=== PATIENT | female | born 1995 | race Caucasian/White ===

== ENCOUNTER 2023-11-17 19:48 | Emergency (ER) | payer OTHER, SELFPAY ==
[2023-11-17 19:52] VITALS: BP 131/76; PULSE 89; RESP 18; TEMP 36.6; O2SAT 100; BMI 35.8
--- NOTE | 2023-11-17 20:34 | XR_ITS ---
The [address] [address] Patient Name: ELIZABETH ROMANO MRN: [id number] date: 1995 Sex: F Assigned Patient Location: ER Current Patient Location: ER Accession/Order Number: [id number] Exam Date: 11/17/2023 20:50 Report Date: 11/17/2023 21:15 At the request of: EMMA NUGENT Procedure: XR chest 2V EXAMINATION: CHEST RADIOGRAPH (2 VIEW AP/LATERAL) Exam Date/Time: 11/17/2023 8:50 PM EST Clinical History: CHEST PAIN Comparison: 02/13/2023 FINDINGS: Lines, tubes, and devices: None. Cardiomediastinal silhouette: Heart size within normal limits. Lungs and pleura: No focal consolidation, pleural effusion or pneumothorax. XR/XR chest 2V IMPRESSION: No acute cardiopulmonary process. Electronically authenticated by: CHARLIE KELLOGG Date: 11/17/2023 21:15
--- NOTE | 2023-11-17 20:34 | ECG_ITS ---
The [facility] Test Date: 2023-11-17 Pat Name: ELIZABETH ROMANO Department: Room: - Gender: Female Regulatory Affairs Analyst: : 1995 Requested By: Sonia Galarza Order Number: [id number] Reading MD: ALVA ALVAREZ Measurements Intervals [place] Rate: 90 P: 46 ND: 120 QRS: 80 QRSD: 80 T: 22 QT: 334 QTc: 382 Interpretive Statements 1100 Sinus rhythm 4068 Nonspecific Twave abnormality 9130 borderline ECG No previous ECG available for comparison Electronically Signed On 11-18-2023 5:34:09 EST by ALVA ALVAREZ
--- NOTE | 2023-11-17 20:42 | ED.GENADUL1 ---
Documented by User: NIYA Ralph 11/17/23 22:00 HPI - General Adult General Chief complaint: Chest Pain Stated complaint: Chest Pain Time Seen by Provider: 11/17/23 20:33 Source: patient Mode of arrival: walk-in Limitations: no limitations History of Present Illness HPI narrative: patient is a 28-year-old presents to the Emergency Room with concerns of chest pain and discomfort. Patient states symptoms started around end of October. Patient states she was diagnosed with coated during . Patient recently completed a steroid taper for fluid in her ears. With no change in her chest symptoms.patient notes persistent cough, semi-productive. No fever. Patient notes sharp pain up to a 7/10 with deep breath, present at rest. She denies any diarrhea or vomiting. She has had a prior remotely but denies any recent surgeries long travels or flights. Patient does not smoke or use control pills. Patient currently on her menstrual cycle denies chance of . Patient can localize pain to the right mid thoracic region worse with deep breath. Location: Reports chest Radiation: Reports back (right mid thoracic) Severity: moderate Quality: Reports stabbing and aching Associated symptoms: Reports cough Treatments prior to arrival: Reports NSAID Related Data Previous Rx's Medication Instructions Recorded naproxen 500 mg tablet 500 mg PO BID PRN pain #14 tabs 11/17/23 Allergies Allergy/AdvReac Type Severity Reaction Status Date / Time No Known Drug Allergies Allergy Verified 11/17/23 19:52 Review of Systems ROS Constitutional Denies: fever or chills Eyes Denies: change in vision Ears, nose, mouth, and throat Denies: throat pain Cardiovascular Denies: chest pain Respiratory Reports: shortness of breath, cough and pain on inspiration; Denies: wheezing Gastrointestinal Denies: abdominal pain, nausea or vomiting Genitourinary Denies: painful urination Musculoskeletal Denies: back pain or neck pain Neurological Denies: headache Psychiatric Denies: anxiety or mood swings Exam Narrative Exam Narrative: Nurses notes and vital signs reviewed and patient is not hypoxic. General: The patient appears well and in no apparent distress. Patient is resting comfortably on cart.patient sitting up speaking in full sentences Skin: Warm, dry, no pallor noted. no rash, no zoster-like lesions. Head: Normocephalic, atraumatic Neck: Supple, trachea mid-line, no tenderness, no lymphadenopathy Eye: Pupils are equal, round and reactive to light, EOMI Ears, Nose, Mouth, and Throat: TM are clear, normal light reflex, oral mucosa is moist, no posterior oropharynx erythema or hypertrophy, uvula is mid-line Cardiovascular: Regular Rate and Rhythm Respiratory: Patient is in no distress, no accessory muscle use, lungs are clear to auscultation, no wheezing, rales or rhonchi. Chest Wall: no tenderness, positive pleuritic chest pain noted. Back: non-tender, no CVA tenderness, pain is in the right parathoracic with deep breath. Musculoskeletal: normal ROM, no tenderness, no swelling GI: Normal bowel sounds, no tenderness to palpation, no masses appreciated. No rebound, guarding, or rigidity noted. Neurological: A&O x4 Psychiatric: Cooperative Constitutional Vital Signs, click to edit/add: Last Vital Signs Temp 98 F 11/17/23 19:52 Pulse 80 11/17/23 22:34 Resp 17 11/17/23 22:34 BP 131/76 11/17/23 19:52 Pulse Ox 99 11/17/23 22:34 O2 Del Method Room Air 11/17/23 19:52 Course Vital Signs Vital signs: Vital Signs Temperature 98 F 11/17/23 19:52 Pulse Rate 89 11/17/23 19:52 Respiratory Rate 18 11/17/23 19:52 Blood Pressure 131/76 11/17/23 19:52 Pulse Oximetry 100 11/17/23 19:52 Oxygen Delivery Method Room Air 11/17/23 19:52 Temperature 98 F 11/17/23 19:52 Pulse Rate 80 11/17/23 22:34 Respiratory Rate 17 11/17/23 22:34 Blood Pressure 131/76 11/17/23 19:52 Pulse Oximetry 99 11/17/23 22:34 Oxygen Delivery Method Room Air 11/17/23 19:52 Medical Decision Making MDM Narrative Medical decision making narrative: patient presents with pleurisy-like symptoms, PERC=0, patient appears low risk for PE, no Pain or swelling, we discussed pleuritic pain consistent with pleurisy IV Tooradol 30 mg given. D-dimer performed. Chest x-ray discussed, no evidence of infiltrate, patient's d-dimer was elevated, given clinical setting with recent covid, pleurisy. Lab Data Lab results reviewed: Yes I reviewed the patient's lab results Labs: Lab Results 11/17/23 11/17/23 Range/Units 20:40 20:56 WBC 7.3 (4.0-11.0) 10^3/uL RBC 4.21 (4.20-5.40) 10^6/uL Hgb 13.2 (12.0-16.0) g/dL Hct 38.2 (36.0-48.0) % MCV 90.7 (81.0-99.0) fL MCH 31.4 (26.7-34.0) pg MCHC 34.6 (29.9-35.2) g/dL RDW 12.2 (11.0-15.0) % Plt Count 237 (150-450) 10^3/uL MPV 9.3 L (9.5-13.5) fL Neut % (Auto) 59.9 (43.0-75.0) % Lymph % (Auto) 32.4 (20.5-60.0) % [place] % (Auto) 4.9 (1.7-12.0) % Eos % (Auto) 2.3 (0.9-7.0) % Baso % (Auto) 0.4 (0.2-2.0) % Neut # (Auto) 4.4 (1.4-6.5) 10^3/uL Lymph # (Auto) 2.4 (1.2-3.8) 10^3/uL [place] # (Auto) 0.4 (0.3-0.8) 10^3/uL Eos # (Auto) 0.2 (0.0-0.7) 10^3/uL Baso # (Auto) 0.0 (0.0-0.1) 10^3/uL Abs Immat Gran (auto) 0.01 (0.00-0.03) 10^3/uL Imm/Tot Granulo (auto) 0.1 (0.0-0.5) % D-Dimer 0.76 H* (<=0.59) mg/L FEU Sodium 137 (136-145) mmol/L Potassium 3.9 (3.5-5.1) mmol/L Chloride 103 (98-107) mmol/L Carbon Dioxide 29.4 (21.0-32.0) mmol/L Anion Gap 8.5 BUN 13.0 (7.0-18.0) mg/dL Creatinine 0.83 (0.55-1.02) mg/dL Est GFR ( Amer) >60 (>=60) Est GFR (Non-Af Amer) >60 (>=60) BUN/Creatinine Ratio 15.7 Glucose 93 (74-106) mg/dL Calcium 9.9 (8.5-10.1) mg/dL Total Bilirubin 0.2 (0.2-1.0) mg/dL AST 14 L (15-37) U/L ALT 17 (14-59) U/L Alkaline Phosphatase 57 (46-116) U/L Troponin I High Sens <4.0 L (4.0-51.3) pg/mL Total Protein 7.4 (6.4-8.2) g/dL Albumin 3.6 (3.4-5.0) g/dL Globulin 3.8 g/dL Albumin/Globulin Ratio 0.9 Lipase 32.0 (16.0-77.0) U/L Urine Color Lt. yellow (YELLOW) Urine Clarity Clear (CLEAR) Urine pH 7.0 (5.0-9.0) Ur Specific Alicia 1.020 (1.005-1.025) Urine Protein Negative (NEG/TRACE) mg/dL Urine Glucose (UA) Negative (NEGATIVE) mg/dL Urine Ketones Negative (NEGATIVE) mg/dL Urine Occult Blood Small A (NEGATIVE) Urine Nitrite Negative (NEGATIVE) Urine Bilirubin Negative (NEGATIVE) Urine Urobilinogen 0.2 (0.2-1.0) EU/dL Ur Leukocyte Esterase Negative (NEGATIVE) Urine RBC 0-2 (0-2) #/HPF Urine WBC None seen (NONE SEEN) #/HPF Ur Squamous Epith Cells Rare (NONE/RARE) #/LPF Urine Crystals Seen A (None Seen) #/HPF Amorphous Sediment Few Urine Bacteria None seen (NONE SEEN) #/HPF Urine Casts None seen (NONE SEEN) #/LPF Urine Mucus None seen (NONE SEEN) Ur Culture Indicated? No Urine HCG, Qual Negative (NEGATIVE) Imaging Data Chest x-ray: Radiologist's impression: MRN: [id number] date: 1995 Sex: F Assigned Patient Location: ER Current Patient Location: ER Accession/Order Number: [id number] Exam Date: 11/17/2023 20:50 Report Date: 11/17/2023 21:15 At the request of: EMMA DEL TORO Procedure: XR chest 2V EXAMINATION: CHEST RADIOGRAPH (2 VIEW AP/LATERAL) Exam Date/Time: 11/17/2023 8:50 PM EST Clinical History: CHEST PAIN Comparison: 02/13/2023 FINDINGS: Lines, tubes, and devices: None. Cardiomediastinal silhouette: Heart size within normal limits. Lungs and pleura: No focal consolidation, pleural effusion or pneumothorax. XR/XR chest 2V IMPRESSION: No acute cardiopulmonary process. Electronically authenticated by: CHARLIE KELLOGG Date: 11/17/2023 21:15 ECG Data Attestation: I personally reviewed and interpreted this ECG as follows: Interpretation: EKG interpretation: Emergency Department physician interpretation, normal sinus rhythm 90 bpm, no ectopy, no ST segment elevation, normal axis. normal qtc Discharge Plan Discharge Chief Complaint: Chest Pain Clinical Impression: Pleurisy, Chest pain Patient Disposition: Home, Self-Care Time of Disposition Decision: 23:17 Condition: Good Mode of Transportation: Private Vehicle Prescriptions / Home Meds: New naproxen 500 mg tablet 500 mg PO BID PRN (Reason: pain) Qty: 14 0RF Instructions: Pleurisy (ED) Stand Alone Forms: Portal Instructions Referrals: DIMITRI HORAN [Primary Care Provider] - As soon as possible Documented by User: Emma Del Toro MD 11/17/23 23:23 HPI - General Adult General Chief complaint: Chest Pain Stated complaint: Chest Pain Time Seen by Provider: 11/17/23 20:33 Related Data Previous Rx's Medication Instructions Recorded naproxen 500 mg tablet 500 mg PO BID PRN pain #14 tabs 11/17/23 Allergies Allergy/AdvReac Type Severity Reaction Status Date / Time No Known Drug Allergies Allergy Verified 11/17/23 19:52 Exam Constitutional Vital Signs, click to edit/add: Last Vital Signs Temp 98 F 11/17/23 19:52 Pulse 80 11/17/23 22:34 Resp 17 11/17/23 22:34 BP 131/76 11/17/23 19:52 Pulse Ox 99 11/17/23 22:34 O2 Del Method Room Air 11/17/23 19:52 Course Vital Signs Vital signs: Vital Signs Temperature 98 F 11/17/23 19:52 Pulse Rate 89 11/17/23 19:52 Respiratory Rate 18 11/17/23 19:52 Blood Pressure 131/76 11/17/23 19:52 Pulse Oximetry 100 11/17/23 19:52 Oxygen Delivery Method Room Air 11/17/23 19:52 Temperature 98 F 11/17/23 19:52 Pulse Rate 80 11/17/23 22:34 Respiratory Rate 17 11/17/23 22:34 Blood Pressure 131/76 11/17/23 19:52 Pulse Oximetry 99 11/17/23 22:34 Oxygen Delivery Method Room Air 11/17/23 19:52 Medical Decision Making [facility] Narrative Medical decision making narrative: patient presents with pleurisy-like symptoms, PERC=0, patient appears low risk for PE, no Pain or swelling, we discussed pleuritic pain consistent with pleurisy IV Tooradol 30 mg given. D-dimer performed. Chest x-ray discussed, no evidence of infiltrate, patient's d-dimer was elevated, given clinical setting with recent covid, pleurisy. CBC and chemistry without significant abnormalities. Troponin is very low excluding ACS in this low risk patient with symptoms greater than three hours. Low risk by heart score. Her d-dimer was positive. CT angiogram of the chest was performed rule out pulmonary embolus is without acute findings. Discussed suspected diagnosis of pleurisy with the patient. She responded well to steroids. We'll give her a shot of Kenalog for longer acting. Naproxen instead of ibuprofen at home. Follow up with PCP. Return precautions were discussed. All questions were answered. The patient was discharged home. Medical Records Medical records reviewed: Yes I reviewed the patient's medical records Lab Data Labs: Lab Results 11/17/23 11/17/23 Range/Units 20:40 20:56 WBC 7.3 (4.0-11.0) 10^3/uL RBC 4.21 (4.20-5.40) 10^6/uL Hgb 13.2 (12.0-16.0) g/dL Hct 38.2 (36.0-48.0) % MCV 90.7 (81.0-99.0) fL MCH 31.4 (26.7-34.0) pg MCHC 34.6 (29.9-35.2) g/dL RDW 12.2 (11.0-15.0) % Plt Count 237 (150-450) 10^3/uL MPV 9.3 L (9.5-13.5) fL Neut % (Auto) 59.9 (43.0-75.0) % Lymph % (Auto) 32.4 (20.5-60.0) % [place] % (Auto) 4.9 (1.7-12.0) % Eos % (Auto) 2.3 (0.9-7.0) % Baso % (Auto) 0.4 (0.2-2.0) % Neut # (Auto) 4.4 (1.4-6.5) 10^3/uL Lymph # (Auto) 2.4 (1.2-3.8) 10^3/uL [place] # (Auto) 0.4 (0.3-0.8) 10^3/uL Eos # (Auto) 0.2 (0.0-0.7) 10^3/uL Baso # (Auto) 0.0 (0.0-0.1) 10^3/uL Abs Immat Gran (auto) 0.01 (0.00-0.03) 10^3/uL Imm/Tot Granulo (auto) 0.1 (0.0-0.5) % D-Dimer 0.76 H* (<=0.59) mg/L FEU Sodium 137 (136-145) mmol/L Potassium 3.9 (3.5-5.1) mmol/L Chloride 103 (98-107) mmol/L Carbon Dioxide 29.4 (21.0-32.0) mmol/L Anion Gap 8.5 BUN 13.0 (7.0-18.0) mg/dL Creatinine 0.83 (0.55-1.02) mg/dL Est GFR ( Amer) >60 (>=60) Est GFR (Non-Af Amer) >60 (>=60) BUN/Creatinine Ratio 15.7 Glucose 93 (74-106) mg/dL Calcium 9.9 (8.5-10.1) mg/dL Total Bilirubin 0.2 (0.2-1.0) mg/dL AST 14 L (15-37) U/L ALT 17 (14-59) U/L Alkaline Phosphatase 57 (46-116) U/L Troponin I High Sens <4.0 L (4.0-51.3) pg/mL Total Protein 7.4 (6.4-8.2) g/dL Albumin 3.6 (3.4-5.0) g/dL Globulin 3.8 g/dL Albumin/Globulin Ratio 0.9 Lipase 32.0 (16.0-77.0) U/L Urine Color Lt. yellow (YELLOW) Urine Clarity Clear (CLEAR) Urine pH 7.0 (5.0-9.0) Ur Specific Alicia 1.020 (1.005-1.025) Urine Protein Negative (NEG/TRACE) mg/dL Urine Glucose (UA) Negative (NEGATIVE) mg/dL Urine Ketones Negative (NEGATIVE) mg/dL Urine Occult Blood Small A (NEGATIVE) Urine Nitrite Negative (NEGATIVE) Urine Bilirubin Negative (NEGATIVE) Urine Urobilinogen 0.2 (0.2-1.0) EU/dL Ur Leukocyte Esterase Negative (NEGATIVE) Urine RBC 0-2 (0-2) #/HPF Urine WBC None seen (NONE SEEN) #/HPF Ur Squamous Epith Cells Rare (NONE/RARE) #/LPF Urine Crystals Seen A (None Seen) #/HPF Amorphous Sediment Few Urine Bacteria None seen (NONE SEEN) #/HPF Urine Casts None seen (NONE SEEN) #/LPF Urine Mucus None seen (NONE SEEN) Ur Culture Indicated? No Urine HCG, Qual Negative (NEGATIVE) Discharge Plan Discharge Chief Complaint: Chest Pain Clinical Impression: Pleurisy, Chest pain Patient Disposition: Home, Self-Care Time of Disposition Decision: 23:17 Condition: Good Mode of Transportation: Private Vehicle Prescriptions / Home Meds: New naproxen 500 mg tablet 500 mg PO BID PRN (Reason: pain) Qty: 14 0RF Instructions: Pleurisy (ED) Stand Alone Forms: Portal Instructions Referrals: DIMITRI HORAN [Primary Care Provider] - As soon as possible
[2023-11-17 20:48] LABS: Bilirubin Urine NEGATIVE (NEGATIVE); Blood Urine SMALL (NEGATIVE); Clarity Urine CLEAR (CLEAR); Color Urine LT. YELLOW (YELLOW); Glucose Urine UA NEGATIVE (NEGATIVE); Ketones Urine NEGATIVE (NEGATIVE); Leukocyte Esterase Urine NEGATIVE (NEGATIVE); Nitrite Urine NEGATIVE (NEGATIVE); Protein Urine NEGATIVE (NEG/TRACE); Urobilinogen Urine 0.2 EU/dL (0.2-1.0)
[2023-11-17 20:49] LABS: Urine Microscopic Indicated YES
[2023-11-17 20:50] LABS: HCG Qualitative Urine* NEGATIVE (NEGATIVE)
[2023-11-17 20:53] LABS: Bacteria Urine NONE SEEN #/HPF (NONE SEEN); Crystals Seen? Seen #/HPF (None Seen); Mucus Urine NONE SEEN (NONE SEEN); RBC Urine 0-2 #/HPF (0-2); Squamous Epithelial Cell Urine RARE #/LPF (NONE/RARE); WBC Urine NONE SEEN #/HPF (NONE SEEN)
--- NOTE | 2023-11-17 20:53 | PC.NURSE ---
Pt reports pain under bilateral ribs with deep inspiration. Was diagnosed with COVID mid October, pt reports I haven't felt the same since . Increased fatigue also reported. Breath sounds are clear upon auscultation.
[2023-11-17 20:54] LABS: Amorphous Sediment Urine FEW; Cast Seen? NONE SEEN #/LPF (NONE SEEN); Urine Culture Indicated NO
[2023-11-17 21:04] LABS: Basophils Percent Auto 0.4 % (0.2-2.0); Eosinophils Absolute Auto 0.2 10^3/uL (0.0-0.7); Eosinophils Percent Auto 2.3 % (0.9-7.0); Hematocrit 38.2 % (36.0-48.0); Hemoglobin 13.2 g/dL (12.0-16.0); Immature Granulocytes Abs Auto 0.01 10^3/uL (0.00-0.03); Immature Granulocytes Pct Auto 0.1 % (0.0-0.5); Lymphocytes Absolute Auto 2.4 10^3/uL (1.2-3.8); Lymphocytes Percent Auto 32.4 % (20.5-60.0); Mean Corpuscular HGB Conc 34.6 g/dL (29.9-35.2); Mean Corpuscular Hemoglobin 31.4 pg (26.7-34.0); Mean Corpuscular Volume 90.7 fL (81.0-99.0); Mean Platelet Volume 9.3 fL (9.5-13.5); Monocytes Absolute Auto 0.4 10^3/uL (0.3-0.8); Monocytes Percent Auto 4.9 % (1.7-12.0); Neutrophils Absolute Auto 4.4 10^3/uL (1.4-6.5); Neutrophils Percent Auto 59.9 % (43.0-75.0); Platelet Count 237 10^3/uL (150-450); Red Blood Count 4.21 10^6/uL (4.20-5.40); Red Cell Distribution Width 12.2 % (11.0-15.0); White Blood Count 7.3 10^3/uL (4.0-11.0)
[2023-11-17] MEDS: KETOROLAC TROMETHAMINE 30 MG/ML VIAL IVP (21:07)
[2023-11-17 21:23] LABS: Alanine Aminotransferase 17 U/L (14-59); Albumin Globulin Ratio 0.9; Albumin Level 3.6 g/dL (3.4-5.0); Alkaline Phosphatase 57 U/L (46-116); Anion Gap 8.5; Aspartate Amino Transferase 14 U/L (15-37); BUN Creatinine Ratio 15.7; Bilirubin Total 0.2 mg/dL (0.2-1.0); Calcium 9.9 mg/dL (8.5-10.1); Carbon Dioxide 29.4 mmol/L (21.0-32.0); Chloride 103 mmol/L (98-107); Estimated GFR (African America >60 (>=60); Estimated GFR (Non-African Ame >60 (>=60); Globulin 3.8 g/dL; Glucose 93 mg/dL (74-106); Potassium 3.9 mmol/L (3.5-5.1); Sodium 137 mmol/L (136-145); Total Protein 7.4 g/dL (6.4-8.2)
[2023-11-17 21:25] LABS: Troponin I High Sensitivity <4.0 pg/mL (4.0-51.3)
[2023-11-17 21:39] LABS: D Dimer 0.76 mg/L FEU (<=0.59)
--- NOTE | 2023-11-17 21:39 | CT_ITS ---
The [address] [address] Patient Name: ELIZABETH ROMANO MRN: [id number] date: 1995 Sex: F Assigned Patient Location: ER Current Patient Location: Accession/Order Number: [id number] Exam Date: 11/17/2023 21:58 Report Date: 11/17/2023 22:38 At the request of: YVETTE VALVERDE Procedure: CT angio chest EXAMINATION: CHEST CT WITH CONTRAST (PULMONARY EMBOLISM PROTOCOL) Indication: r/o pe Technique: Spiral CT acquisition of the chest from the thoracic inlet to the upper abdomen following IV contrast. Maximum intensity projection (MIP)reconstructions were performed. All CT scans at this facility use dose modulation, iterative reconstruction, and/or weight based dosing when appropriate to reduce radiation dose to as low as reasonably achievable. Contrast: 75 mL of Omnipaque 350 IV Comparison: Multiple chest radiographs most recently 11/17/2023 RESULT: Limitations: None. Evaluation for thromboembolic disease: - Right heart chambers: No thromboembolic disease. - Main pulmonary arteries: No thromboembolic disease. - Lobar pulmonary arteries: No thromboembolic disease. - Segmental pulmonary arteries: No thromboembolic disease. - Subsegmental pulmonary arteries: No thromboembolic disease. Lines, tubes, and devices: None. Lung parenchyma and pleura: No consolidation. No suspicious pulmonary nodule. No pleural effusion. Central airways are patent. Thoracic inlet, heart, and mediastinum: No lymphadenopathy in the axillary, mediastinal, or hilar regions. The thoracic aorta and main pulmonary artery are normal in caliber. The cardiac chambers are normal in size. No coronary artery atherosclerotic calcifications are noted, although the study is not optimized for coronary assessment. No pericardial effusion or thickening. Bones and soft tissues: No destructive bone lesion. Chest wall is unremarkable. Upper abdomen: No abnormality in the imaged upper abdomen. . CT/CT angio chest IMPRESSION: No CT evidence of pulmonary embolism or acute findings in the thorax. Electronically authenticated by: CHARLIE KELLOGG Date: 11/17/2023 22:38
[2023-11-17] MEDS: 0.9 % SODIUM CHLORIDE 1,000 ML 999 ML IV (22:03)
[2023-11-17 22:34] VITALS: PULSE 80; RESP 17; O2SAT 99
[2023-11-17] MEDS: TRIAMCINOLONE ACETONIDE 40 MG/ML VIAL IM (23:30)
[2023-11-17 23:36] VITALS: BP 117/91; PULSE 81; RESP 15; O2SAT 98
== END 2023-11-17 23:39 | disposition home or self-care (01) ==
PROVIDERS: Personal Emergency Response Attendant; Emergency Provider Student in an Organized Health Care Education/Training Program; PCP Nurse Practitioner
DX: R07.9 Chest pain, unspecified (principal); R09.1 Pleurisy; Z86.16 Personal history of COVID-19
CPT/HCPCS: 36415; 71046; 71275; 80053; 81001; 83690; 84484; 84703; 85025; 85378; 93005; 96372; 96374; 99285; Q9967

== ENCOUNTER 2024-09-14 23:15 | Emergency (ER) | payer OTHER, SELFPAY ==
[2024-09-14 23:18] VITALS: BP 134/92; PULSE 88; TEMP 36.8; O2SAT 100; BMI 31.6
--- OUTSIDE RECORDS SUMMARY | 2024-09-14 23:20 | XMS_ITS | CCD ---
Author Organization [facility] Inform ion Partnership [facility] Care Team Providers Care Hydroelectric Operator Name Role Phone Sherice Carvalho Unavailable REQUEST, DR YADAV LISTED Primary Care Unavaila ble PAY ., DR DICKERSON Admitting Unavailable PAY ., DR DICKERSON Attending Unavailable PAY ., DR DICKERSON Consulting Unavailable ANGEL CARCAMO Consulting Unavailable MAKAYLA ., THIERRY Admitting Unavailable MAKAYLA ., THIERRY Attending [facility] Primary Care Unavailable SHRADDHA ., NIYA RODRÍGUEZ Consulting Unavailrambo BENAVIDES ., THIERRY Consulting Unavailable JOHN TIRADO Consulting Unavailable Geovanni 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-Dimitri SANTOS Primary Care [facility] DIMITRI GALARZA Attending Unavailable DIMITIR GALARZA Referring Unavailable DIMITRI GALARZA Primary Care Unavailable DIMITRI GALARZA Attending Unavailable DIMITRI GALARZA Referring Unavailable MICHAEL GALARZAERIE Jose Primary Care Unavailable DIMITRI GALARZA Attending Unavailable DIMITRI GALARZA Referring Unavailable DIMITRI GALARZA Primary Care Unavailable DIMITRI GALARZA Attending Unavailable DIMITRI GALARZA Referring Unavailable MICHAEL GALARZAERIE Jose Primary Care Unavailable HARITHA GALARZAE Jose Attending Unavailable HARITHA GALARZAE Jose Referring Unavailable MICHAEL GALARZAERIE Jose Primary Care Unavailable Medications Current Medications Medication Drug Class(es) Dates Sig (Normalized) Sig (Original) fluticasone propionate 0.05 mg/actuat metered dose nasal spray (1 source) Corticosteroid Start: 02-07-2022 take 2 spray(s) nasal route once daily Fluticasone Propionate 50 MCG/ACT 2 sprays Nasally Once a day for 14 day(s) Jan, Active omeprazole 20 mg delayed release oral tablet (2 sources) Proton Pump Inhibitor Start: 11-14-2023 take 1 tablet by mouth in the morning omeprazole (PriLOSEC OTC) 20 mg EC tablet Indications: GERD without esophagitis Take 1 tablet (20 mg total) by mouth in the morning. 90 tablet 1 11/14/2023 Active phentermine hydrochloride 37.5 mg oral tablet (3 sources) Sympathomimetic Amine Anorectic Start: 01-23-2024 End: 02-26-2024 take 31-31.9 tablets by mouth once daily before breakfast phentermine (ADIPEX-P) 37.5 mg tablet Indications: Class 1 obesity due to excess calories without serious comorbidity with body mass index (BMI) of 31.0 to 31.9 in adult Take 1 tablet (37.5 mg total) by mouth every morning before breakfast. 30 tablet 0 02/26/2024 Active predniSONE 20 mg oral tablet (1 source) Start: 02-07-2022 take 1 tablet by mouth every twelve hours predniSONE 20 MG 1 tablet Orally bid for 5 day(s) Jan, Active Problems Active Problems Problem Classification Problem Date Documented Da te Episodic/Chronic Nonspecific chest pain (1 source) Chest pain, unspecified; Translations: [CHEST PAIN UNSPECIFIED] Onset: 02-14-2023 Episodic Other circulatory disease (1 source) Upper respiratory tract finding; Translations: [Other specified symptoms and signs involving the circulatory and respiratory systems] 02-26-2024 Episodic Other nutritional; endocrine; and metabolic disorders (2 sources) Obesity caused by energy imbalance; Translations: [Other obesity due to excess calories] 01-23-2024 Chronic Other nutritional; endocrine; and metabolic disorders (1 source) Body mass index (BMI) 30.0-30.9, adult; Translations: [Body mass index (BMI) 30.0-30.9, adult] Onset: 03-25-2024 Chronic Other nutritional; endocrine; and metabolic disorders (1 source) Other obesity due to excess calories; Translations: [Other obesity due to excess calories] Onset: 02-26-2024 Chronic Other nutritional; endocrine; and metabolic disorders (1 source) Body mass index (BMI) 31.0-31.9, adult; Translations: [Body mass index (BMI) 31.0-31.9, adult] Onset: 02-26-2024 Chronic Other nutritional; endocrine; and metabolic disorders (1 source) Body mass index (BMI) 32.0-32.9, adult; Translations: [Body mass index (BMI) 32.0-32.9, adult] Onset: 01-23-2024 Chronic Other nutritional; endocrine; and metabolic disorders (1 source) Weight loss Onset: 02-26-2024 Episodic Other upper respiratory infections (2 sources) Acute sinusitis, unspecified; Translations: [Acute upper respiratory infection, unspecified] Onset: 02-07-2022 Resolved: 02-07-2022 Episodic Residual codes; unclassified (1 source) Other general symptoms and signs; Translations: [Other general symptoms and signs] Onset: 02-26-2024 Episodic Unclassified (2 sources) COUGH, UNSPECIFIED; Translations: [COUGH, UNSPECIFIED] Onset: 02-14-2023 Unclassified (1 source) CONTACT W/AND (SUSP) EXPOS COVID-19; Translations: [CONTACT W/AND (SUSP) EXPOS COVID-19] Onset: 02-14-2023 Unclassified (1 source) Weight Check Onset: 03-25-2024 Unclassified (1 source) Acute cough; Translations: [Acute cough] Onset: 11-18-2023 Past or Other Problems Problem Classification Problem Date Documented Da te Episodic/Chronic Cardiac dysrhythmias (1 source) Palpitations; Translations: [PALPITATIONS] Onset: 12-05-2022 Episodic Fever of unknown origin (1 source) Fever, unspecified Onset: 02-07-2022 Resolved: 02-07-2022 Episodic Mood disorders (2 sources) Mood disorders Onset: 01-23-2024 Resolved: 02-26-2024 01-23-2024 Other connective tissue disease (1 source) Pain in right lower leg; Translations: [Pain in right lower leg] Onset: 11-26-2023 Episodic Other connective tissue disease (1 source) Pain in lower limb Onset: 11-26-2023 Episodic Other lower respiratory disease (4 sources) Pleurodynia; Translations: [PLEURODYNIA] Onset: 12-04-2022 Episodic Other lower respiratory disease (1 source) Cough Onset: 11-18-2023 Episodic Pleurisy; pneumothorax; pulmonary collapse (2 sources) Pleurisy; Translations: [PLEURISY] Onset: 02-14-2023 Episodic Residual codes; unclassified (2 sources) Family history of diabetes mellitus in first degree relative; Translations: [Family history of diabetes mellitus] Onset: 06-20-2017 06-20-2017 Episodic Unclassified (1 source) COUGH, UNSPECIFIED; Translations: [COUGH, UNSPECIFIED] Onset: 02-13-2023 Unclassified (2 sources) Onset: 01-23-2024 Resolved: 02-26-2024 01-23-2024 Results Test Name Value Interpretation Reference Range Facility POCT Influenza A/Influenza B /SARS-COV-2 VeritorOrdered By: Em Hanson on 02-26-2024 External Poct Influenza A Antigen Negative [facility] External Poct Influenza B Antigen Negative [facility] SARS-CoV-2 (COVID-19) Ag IA.rapid Ql (Resp) Negative [facility] In office Testingon 03-08-20 23 In office Testing [id number] 7#[id number]:127 Normal [facility] Covid-19 PCR (CVDTB)on 01-30 SARS-CoV-2 (COVID-19) RNA CARSON+probe Ql (Unsp spec) Not detected Normal NOT DETECTED [facility] Comment on above: Result Comment: When diagnostic testing is negative, the possibility of a false negative should be considered in the context of a patient's recent exposures and the presence of clinical signs and symptoms consistent with SARS-CoV-2. This test is not yet approved or cleared by the [place] FDA. When there are no FDA-approved or cleared tests available, and other criteria are met, FDA can make tests available under an emergency access mechanism called an Emergency Use Authorization (EUA). The EUA for this test is supported by the [place] of Health and Human Service's declaration that circumstances exist to justify the emergency use of in vitro diagnostics for the detection and/or diagnosis of the virus that causes COVID-19. This EUA will remain in effect for the duration of the COVID-19 declaration justifying emergency of IVDs, unless it is terminated or revoked by the FDA (after which the test may no longer be used). Performed By: #### C [facility] #### [facility] [address] [place] [address] Dr. Hue Hernandez INFLUENZA A AND B [facility] 02-13 INFLUBANNER SEE BELOW Normal [facility] Comment on above: Result Comment: Nega tive for Flu A protein angiten. Infection due to Flu A cannot be ruled out. Flu A angiten in the sample may be below the detection limit of the test. Performed By: #### I NFLUAB #### [facility] [address] [place] [address] Dr. [facility] SEE BELOW Normal [facility] Comment on above: Result Comment: Nega tive for Flu B protein antigen. Infection due to Flu B cannot be ruled out. Flu B antigen in the sample may be below the detection limit of the test. Performed By: #### I NFLUAB #### [facility] [address] [place] [address] Dr. Hue Hernandez INFLUENZA A AG Negative Normal NEGATIVE SEE COMMENT [facility] Comment on above: Performed By: #### I NFLUAB #### [facility] [address] [place] [address] Dr. Hue Hernandez INFLUENZA B AG Negative Normal NEGATIVE SEE COMMENT [facility] Comment on above: Performed By: #### I NFLUAB #### [facility] [address] [place] [address] Dr. Hue Hernandez XR CHEST 1 Von 02-13-2023 XR CHEST 1 V EXAM: XR CHEST 1 V HISTORY: COUGH COMPARISON: None. TECHNIQUE: Chest X-ray AP, 1 view FINDINGS: Support devices: None. Lungs/pleura: No consolidation, effusion, or pneumothorax. Heart and mediastinum: Normal contours. Bones: No acute abnormality identified. IMPRESSION: No radiographic evidence of acute cardiopulmonary process. Electronically authenticated by: JOHN TIRADO Date: 2023-02-13 13:35 Normal [facility] XR CHEST 2 Von 12-04-2022 XR CHEST 2 V EXAM: XR CHEST 2 V HISTORY: SHORTNESS OF BREATH COMPARISON: Chest x-ray 02/20/2022 TECHNIQUE: 2 views chest x-ray frontal and lateral FINDINGS: Mild bilateral perihilar airway wall thickening. No lobar lung consolidation, large pleural effusions, pneumothorax, or acute bony abnormality. Cardiac size is unremarkable. IMPRESSION: Mild bilateral perihilar airway wall thickening could reflect sequela of reactive airway inflammation or bronchiolitis in the proper clinical setting. Correlate clinically. Otherwise, no radiographic lung consolidation or large pleural effusions. Electronically authenticated by: ANGEL CARCAMO Date: 2022-12-04 01:12 Normal [facility] Quick Fluon 02-07-2022 FLUAV Ab CF (S) [Titer] Negative [employer] Other FLUBV Ab CF (S) [Titer] Negative [employer] Other Vital Signs Date Time Vital Sign Value Performing Clinician Facility 02-26-2024 11:29-0400 Body height 165.1 cm Dimitri Galarza APRN-TOM [facility] 02-26-2024 11:29-0400 Body mass index (BMI) [Ratio] 31.43 kg/m2 Dimitri Galarza APRN-BLUEPRINTER [facility] 02-26-2024 11:29-0400 Body temperature 97.81 [degF] Dimitri Galarza APRN-BLUEPRINTER [facility] 02-26-2024 11:29-0400 Body weight 85.68 kg Dimitri Galarza APRN-BLUEPRINTER [facility] 02-26-2024 11:29-0400 Diastolic blood pressure 62 mm[Hg] Dimitri Galarza APRN-BLUEPRINTER [facility] 02-26-2024 11:29-0400 Heart rate 94 /min Dimitri Galarza APRN-BLUEPRINTER [facility] 02-26-2024 11:29-0400 Respiratory rate 18 /min Dimitri Galarza APRN-BLUEPRINTER [facility] 02-26-2024 11:29-0400 SaO2% (BldA) [Mass fraction] 98 % Dimitri Galarza APRN-BLUEPRINTER [facility] 02-26-2024 11:29-0400 Systolic blood pressure 108 mm[Hg] Dimitri Galarza APRN-BLUEPRINTER Work Phone: [facility] [employer] 01-23-2024 15:28-0500 Body height 165.1 cm Dimitri Galarza APRN-BLUEPRINTER Work Phone: [facility] [employer] 01-23-2024 15:28-0500 Body mass index (BMI) [Ratio] 32.2 kg/m2 Dimitri Galarza APRN-BLUEPRINTER [facility] 01-23-2024 15:28-0500 Body temperature 98.49 [degF] Dimitri Galarza APRN-BLUEPRINTER [facility] 01-23-2024 15:28-0500 Body weight 87.77 kg Dimitri Galarza APRN-BLUEPRINTER Work Phone: [facility] [employer] 01-23-2024 15:28-0500 Diastolic blood pressure 64 mm[Hg] Dimitri Galarza APRN-BLUEPRINTER Work Phone: [facility] [employer] 01-23-2024 15:28-0500 Heart rate 108 /min Dimitri Galarza APRN-BLUEPRINTER [facility] 01-23-2024 15:28-0500 SaO2% (BldA) [Mass fraction] 99 % Dimitri Galarza APRN-BLUEPRINTER [facility] 01-23-2024 15:28-0500 Systolic blood pressure 114 mm[Hg] Dimitri Galarza APRN-BLUEPRINTER Work Phone[facility] 02-07-2022 14:00-0500 Body height 165.1 cm Sherice Carvalho Other [employer] Other 02-07-2022 14:00-0500 Body mass index (BMI) [Ratio] 38.27 kg/m2 Sherice Carvalho Other [employer] Other 02-07-2022 14:00-0500 Body temperature 99.6 [degF] Sherice Carvalho Other [employer] Other 02-07-2022 14:00-0500 Body weight 104.33 kg Sherice Carvalho Other [employer] Other 02-07-2022 14:00-0500 Respiratory rate 18 /min Sherice Carvalho Other [employer] Other 02-07-2022 14:00-0500 SaO2% (BldA) [Mass fraction] 98 % Sherice Carvalho Other [employer] Other Encounters Encounter Date Encounter Type Care Provider Facility Start: 03-25-2024 End: 03-25-[address] [facility] Start: 02-26-2024 End: 02-26-[address] [facility] Start: 02-26-2024 End: 02-26-2024 Office outpatient visit 15 minutes Dimitri Galarza 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-BLUEPRINTER Work Phone: [facility] Comment on above: Class 1 obesity due to excess calories without serious comorbidity with body mass index (BMI) of 31.0 to 31.9 in adult (Primary Dx); Upper respiratory symptom Start: 01-23-2024 End: 01-23-[address] [facility] Start: 01-23-2024 End: 01-23-2024 Office outpatient visit 15 minutes Dimitri Galarza 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-BLUEPRINTER Work Phone: [facility] Comment on above: Class 1 obesity due to excess calories without serious comorbidity with body mass index (BMI) of 32.0 to 32.9 in adult (Primary Dx) Start: 11-26-2023 End: 11-26-[address] [facility] Start: 11-18-2023 End: 11-18-[address] [facility] Start: 02-13-2023 End: 02-13-2023 ambulatory THIERRY BENAVIDES . Facility: Start: 12-04-2022 End: 12-04-[address] NONE LISTED REQUEST Facility: Start: 02-07-2022 End: 02-07-2022 ambulatory Sherice Carvalho Other [employer] Other Start: 02-07-2022 Office outpatient vi sit 15 minutes Sherice Carvalho [facility] Procedures Date Procedure Procedure Detail Performing Clinician Start: 02-26-2024 POCT INFLUENZA A/INF LUENZA B/SARS-COV-2 VERITOR Dimitri Galarza [email or web address] Work Phone: Start: 02-26-2024 Adult depression scr eening assessment Dimitri Galarza 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-BLUEPRINTER Work Phone: Start: 01-23-2024 Adult depression scr eening assessment Dimitri Galarza 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-BLUEPRINTER Work Phone: Start: 11-13-2022 Microscopic observat ion [Identifier] in Cervix by Cyto stain Dimirti Galarza [email or web address] Work Phone: Plan of Treatment Date Care Activity Detail Author Start: 11-13-2025 Screening for malign ant neoplasm of cervix Pap Smear [facility] Start: 02-25-2025 Adult BMI Screening Adult BMI Screen ing [facility] Start: 02-25-2025 Depression Screening Depression Scre ening [facility] Start: 02-25-2025 Tobacco Screening Tobacco Screening [facility] Start: 01-23-2025 Adult BMI Follow Up Plan Adult BMI Follow Up Plan [facility] Start: 01-23-2025 Adult BMI Screening Adult BMI Screen ing [facility] Start: 01-23-2025 Depression Screening Depression Scre ening [facility] Start: 01-23-2025 Tobacco Screening Tobacco Screening [facility] Start: 11-26-2024 Adult BMI Follow Up Plan Adult BMI Follow Up Plan [facility] Start: 03-23-2024 End: 03-23-2024 Patient encounter procedure 03/23/2024 1:20 PM EDT Office Visit [facility] [address] [place] [address] Dimitri Galarza, 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-BLUEPRINTER [address] [place] [address] [facility] Start: 02-24-2024 End: 02-24-2024 Patient encounter procedure 02/24/2024 11:20 AM EDT Office Visit [facility] [address] [place] [address] Dimitri Galarza, 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-BLUEPRINTER [address] [place] [address] [facility] Start: 08-02-2023 Influenza vaccination Influenza Vacc ine [facility] Start: 2014 DTaP,Tdap and Td Vaccines (1 - Tdap) DTaP,Tdap and Td Vaccines (1 - Tdap) [facility] Immunizations Immunization Date Immunization Notes Care Provider Fa cility NEGATED: Highlighted row has not occurred!01-08-2018 tetanus toxoid, reduced diphtheria toxoid, and acellular pertussis vaccine, adsorbed Dimitri Galarza 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-BLUEPRINTER Work Phone: [facility] Payers Date Payer Category Payer Private Health Insurance [facility] [id number] 2022-Present [phone] [facility] [address] [place] [id number] 1995 Unknown [id number] 1995 Unknown [id number] 1995 Unknown [id number] 1995 Unknown [id number] 1995 Unknown [id number] 1995 Unknown [id number] 1995 Unknown [id number] 1959 Unknown [id number] 1959 Unknown [id number] Social History Date Type Detail Facility Start: 01-11-2021 End: 01-23-2024 Sex Assigned At [facility] Start: 10-17-2022 Tobacco smoking stat [facility] Ex-smoker [facility] End: 06-20-2015 History of tobacco use Current smoker [facility] End: 06-20-2015 History of tobacco use Cigarette Smoker [facility] Start: 10-17-2022 Tobacco use and exposure Smokeless tobacco non-user [facility] Start: 01-23-2024 End: 02-26-2024 Alcohol intake Current drinker of alcohol (finding) [facility] Start: 01-11-2021 End: 01-23-2024 History of Social function [facility] Adolescent depressio n screening assessment 0 [facility] The thought of harmi ng myself has occurred to me Never [facility] Start: 10-17-2022 Alcohol Comment occassionally [facility] Start: 1995 Sex Assigned At Not on file P [facility] History of Present illness Narrative 02-26-2024 Dimitri Galarza, KJ-BLUEPRINTER - 02/26/2024 11:40 AM EDT Note Date & Type Note Facility 02-26-2024 History of Present illness Narrative Images from the original note were not included. [address] [place] [address] SUBJECTIVE: Patient ID: Elizabeth Romano is a 28 y.o. female. Chief Complaint Patient presents with Weight Loss Sinus infection 1 week Presents for weight loss follow up. Relates she has now lost 50 pounds total over the past year. She does not have an exercise routine, but enjoys to walk outdoors. Additional concern today is congestion, sneezing. States her symptoms are 50% improved since onset. She is not sure if she has a sinus infection. Sinus Problem This is a new problem. The current episode started 1 to 4 weeks ago. The problem has been gradually improving since onset. Her pain is at a severity of 3/10. The pain is mild. Associated symptoms include congestion and sneezing. Pertinent negatives include no chills, ear pain or shortness of breath. The following portions of the patient's history were reviewed and updated as appropriate: allergies, current medications, past family history, past medical history, past social history, past surgical history and problem list. Past Surgical History: Procedure Laterality Date N/A 05/20/2020 Performed by Gracia Jauregui MD at [facility] OR History reviewed. No pertinent past medical history. There is no immunization history for the selected administration types on file for this patient. REVIEW OF SYSTEMS: Review of Systems Constitutional: Negative for chills and fever. HENT: Positive for congestion and sneezing. Negative for ear pain. Eyes: Negative for visual disturbance. Respiratory: Negative for chest tightness and shortness of breath. Cardiovascular: Negative for chest pain and palpitations. Gastrointestinal: Negative. Endocrine: Negative. Genitourinary: Negative for menstrual problem and pelvic pain. Musculoskeletal: Negative. Skin: Negative. Allergic/Immunologic: Negative. Neurological: Negative for syncope and facial asymmetry. Hematological: Does not bruise/bleed easily. Psychiatric/Behavioral: Negative. PHYSICAL EXAMINATION: Vitals: 02/26/24 1129 BP: 108/62 BP Site: Left Arm BP Postition: Sitting Pulse: 94 Resp: 18 Temp: 36.6 C (97.8 F) TempSrc: Oral SpO2: 98% Weight: 85.7 kg (188 lb 14.4 oz) Height: 165.1 cm (5' 5 ) Patient noted to have elevated BMI and the following intervention(s) were applied: encouragement to exercise. Physical Exam Vitals and nursing note reviewed. Constitutional: General: She is not in acute distress. Appearance: She is well-developed. She is not diaphoretic. HENT: Head: Normocephalic and atraumatic. Right Ear: Tympanic membrane and external ear normal. Left Ear: Tympanic membrane and external ear normal. Nose: Nose normal. Mouth/Throat: Mouth: Mucous membranes are moist. Pharynx: No oropharyngeal exudate. Eyes: General: Right eye: No discharge. Left eye: No discharge. Conjunctiva/sclera: Conjunctivae normal. Pupils: Pupils are equal, round, and reactive to light. Neck: Thyroid: No thyromegaly. Vascular: No JVD. Cardiovascular: Rate and Rhythm: Normal rate and regular rhythm. Heart sounds: Normal heart sounds. No murmur heard. No friction rub. No gallop. Pulmonary: Effort: Pulmonary effort is normal. Breath sounds: Normal breath sounds. Abdominal: General: Bowel sounds are normal. There is no distension. Palpations: Abdomen is soft. There is no mass. Tenderness: There is no abdominal tenderness. Musculoskeletal: General: Normal range of motion. Cervical back: Normal range of motion and neck supple. Lymphadenopathy: Cervical: No cervical adenopathy. Skin: General: Skin is warm and dry. Capillary Refill: Capillary refill takes less than 2 seconds. Neurological: Mental Status: She is alert and oriented to person, place, and time. Deep Tendon Reflexes: Reflexes are normal and symmetric. Psychiatric: Mood and Affect: Mood normal. Behavior: Behavior normal. Thought Content: Thought content normal. Judgment: Judgment normal. ASSESSMENT/PLAN: Elizabeth was seen today for weight loss. Diagnoses and all orders for this visit: Flu-like symptoms Class 1 obesity due to excess calories without serious comorbidity with body mass index (BMI) of 31.0 to 31.9 in adult - phentermine (ADIPEX-P) 37.5 mg tablet; Take 1 tablet (37.5 mg total) by mouth every morning before breakfast. Upper respiratory symptom - POCT Influenza A/Influenza B/SARS-COV-2 Veritor Assessment findings negative for sinuitis. POCT influenza and COVID testing in office is negative. States symptoms are now 50% better Cool mist humidification for congestion, warm salt water gargles as needed for sore throat. Motrin or Tylenol as needed per still pump operator guidelines for fever or pain. Body mass index is 31.43 kg/m . Patient noted to have elevated BMI and the following intervention(s) were applied: Discussed current weight today. Consider healthy food choices, portion control. Avoid sugary beverages and high concentrated sweets. Routine exercise regimen encouraged. The OARRS/MAPPS database was reviewed today and found to be appropriate. No indication of medication diversion, or non compliance. Reorder phentermine 37.5 mg oral daily ALL QUESTIONS ANSWERED Total time spent was 25 minutes: Preparing to see the patient (e.g., review of tests) Obtaining and/or reviewing separately obtained history Performing a medically appropriate examination and/or evaluation Counseling and educating the patient/family/caregiver Ordering medications, tests, or procedures Follow-up: One month RADU Chiang 02/26/24 1407 documented in this encounter [facility] History of Present illness Narrative 01-23-2024 RADU Chiang - 01/23/2024 3:20 PM EST Note Date & Type Note Facility 01-23-2024 History of Present illness Narrative Images from the original note were not included. [address] [facility] [address] SUBJECTIVE: Patient ID: Elizabeth Romano is a 28 y.o. female. Chief Complaint Patient presents with Weight Check Presents for discussion of weight loss. Has lost approximately 45 over the past 8 months. She wishes to start phentermine. The following portions of the patient's history were reviewed and updated as appropriate: allergies, current medications, past family history, past medical history, past social history, past surgical history and problem list. Past Surgical History: Procedure Laterality Date N/A 05/20/2020 Performed by Gracia Jauregui MD at [facility] OR History reviewed. No pertinent past medical history. There is no immunization history for the selected administration types on file for this patient. REVIEW OF SYSTEMS: Review of Systems Constitutional: Negative for chills and fever. HENT: Negative. Eyes: Negative for visual disturbance. Respiratory: Negative for chest tightness and shortness of breath. Cardiovascular: Negative for chest pain and palpitations. Gastrointestinal: Negative. Endocrine: Negative. Genitourinary: Negative for menstrual problem and pelvic pain. Musculoskeletal: Negative. Skin: Negative. Allergic/Immunologic: Negative. Neurological: Negative for syncope and facial asymmetry. Hematological: Does not bruise/bleed easily. Psychiatric/Behavioral: Negative. PHYSICAL EXAMINATION: Vitals: 01/23/24 1528 BP: 114/64 BP Site: Left Arm BP Postition: Sitting Pulse: 108 Temp: 36.9 C (98.5 F) TempSrc: Oral SpO2: 99% Weight: 87.8 kg (193 lb 8 oz) Height: 165.1 cm (5' 5 ) Patient noted to have elevated BMI and the following intervention(s) were applied: encouragement to exercise. Physical Exam Vitals and nursing note reviewed. Constitutional: General: She is not in acute distress. Appearance: She is well-developed. She is not diaphoretic. HENT: Head: Normocephalic and atraumatic. Right Ear: Tympanic membrane and external ear normal. Left Ear: Tympanic membrane and external ear normal. Nose: Nose normal. Mouth/Throat: Mouth: Mucous membranes are moist. Pharynx: No oropharyngeal exudate. Eyes: General: Right eye: No discharge. Left eye: No discharge. Conjunctiva/sclera: Conjunctivae normal. Pupils: Pupils are equal, round, and reactive to light. Neck: Thyroid: No thyromegaly. Vascular: No JVD. Cardiovascular: Rate and Rhythm: Normal rate and regular rhythm. Heart sounds: Normal heart sounds. No murmur heard. No friction rub. No gallop. Pulmonary: Effort: Pulmonary effort is normal. Breath sounds: Normal breath sounds. Abdominal: General: Bowel sounds are normal. There is no distension. Palpations: Abdomen is soft. There is no mass. Tenderness: There is no abdominal tenderness. Musculoskeletal: General: Normal range of motion. Cervical back: Normal range of motion and neck supple. Lymphadenopathy: Cervical: No cervical adenopathy. Skin: General: Skin is warm and dry. Capillary Refill: Capillary refill takes less than 2 seconds. Neurological: Mental Status: She is alert and oriented to person, place, and time. Deep Tendon Reflexes: Reflexes are normal and symmetric. Psychiatric: Mood and Affect: Mood normal. Behavior: Behavior normal. Thought Content: Thought content normal. Judgment: Judgment normal. ASSESSMENT/PLAN: Elizabeth was seen today for weight check. Diagnoses and all orders for this visit: Class 1 obesity due to excess calories without serious comorbidity with body mass index (BMI) of 32.0 to 32.9 in adult - phentermine (ADIPEX-P) 37.5 mg tablet; Take 1 tablet (37.5 mg total) by mouth every morning before breakfast. Body mass index is 32.2 kg/m . Patient noted to have elevated BMI and the following intervention(s) were applied: Discussed current weight today. Consider healthy food choices, portion control. Avoid sugary beverages and high concentrated sweets. Routine exercise regimen encouraged. The OARRS/MAPPS database was reviewed today and found to be appropriate. No indication of medication diversion, or non compliance. ALL QUESTIONS ANSWERED Total time spent was 25 minutes: Preparing to see the patient (e.g., review of tests) Obtaining and/or reviewing separately obtained history Performing a medically appropriate examination and/or evaluation Counseling and educating the patient/family/caregiver Ordering medications, tests, or procedures Follow-up: One month [facility]U Chiang 01/23/24 1716 documented in this encounter [facility] Evaluation note 02-07-2022 Note Date & Type Note Facility 02-07-2022 Evaluation note Encounter Date Diagnosis Assessment Notes Jan, Fever, unspecified fever cause (ICD-10 - R50.9) Jan, Acute sinusitis, recurrence not specified, unspecified location (ICD-10 - J01.90) Drink plenty fluids, get plenty of rest. Take the prednisone as prescribed until gone. Use the Flonase inhaler as prescribed until your symptoms improve. Take Tylenol Motrin for aches pains or fevers. Off work today and tomorrow. Follow-up with your family physician if no improvement in 2 to 3 days. [employer] Other Evaluation note Note Date & Type Note Facility Evaluation note Diagnosis Class 1 obesity due to excess calories without serious comorbidity with body mass index (BMI) of 32.0 to 32.9 in adult- Primary [facility] Note Date & Type Note Facility Evaluation note Diagnosis Class 1 obesity due to excess calories without serious comorbidity with body mass index (BMI) of 31.0 to 31.9 in adult- Primary Upper respiratory symptom documented [facility] History general Narrative - Reported Note Date & Type Note Facility History general Narrative - Reported Type Surgical History 2020 Hospitalization History see above [employer] Other Instructions Attachments Note Date & Type Note Facility Instructions The following attachments cannot be sent through Care Everywhere.Diet and health (Korean)Body Mass Index, Adult (Korean)documented in this encounter Physician Practice [facility] Instructions Attachments Note Date & Type Note Facility Instructions The following attachments cannot be sent through Care Everywhere.Diet and health (Korean)documented in this encounter [employer] Summary Purpose Family History No Family History Records FoundNo Family History Records FoundNo Family History Records Found Advance Directives No Advanced Directives Records FoundLatest Code Status on File Code Status Date Activated Date Inactivated Comments Full Code 05/20/2020 8:20 AM 05/23/2020 11:59 AM Code Status History Code Status Date Activated Date Inactivated Comments Full Code 07/01/2019 6:06 AM 07/04/2019 4:30 PM Full Code 06/14/2019 10:30 PM 06/15/2019 12:41 AM Full Code 05/26/2019 7:03 PM 05/26/2019 9:30 PM Full Code 01/08/2018 5:51 AM 01/10/2018 4:50 PM Reason for Referral Specialty Diagnoses / Procedures Referred By Saba stark Referred To Contact Diagnoses Class 1 obesity due to excess calories without serious comorbidity with body mass index (BMI) of 32.0 to 32.9 in adult Dimitri Galarza, 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-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 [address] [place] [address] Referral ID Status Reason Start Date Expiration Date Visits Re quested Visits Authorized [id number] Closed 1 1 Additional Source Comments REASON FOR VISIT (unrecogniz ed section and content) Reason Comments Weight Check Reason Comments Weight Loss Sinus infection 1 we ek INFORMATION SOURCE (unrecogn ized section and content) DATE CREATED AUTHOR 03/09/2023 [facility] DATE CREATED AUTHOR AUTHOR'S ORGANIZ ATION 03/27/2023 [facility] DATE CREATED AUTHOR AUTHOR'S ORGANIZ ATION 03/27/2024 [facility] Care Teams (unrecognized sec tion and content) Hydroelectric Operator Relationship Specialty Start Date End Date Dimitri Galarza [facility] [address] [place] [address] PCP - General Family Medicine 09/12/22 Hydroelectric Operator Relationship Specialty Start Date End Date Dimitri Galarza [facility] [address] [place] [address] PCP - General Family Medicine 09/12/22 FOR RECORDS PERTAINING TO PATIENTS WHO ARE OR HAVE BEEN ENROLLED IN A CHEMICAL DEPENDENCY/SUBSTANCEABUSE PROGRAM, SOME INFORMATION MAY BE OMITTED. This clinical summary was aggregated from multiple sources. Caution should be exercised in using it in the provision of clinical care. This summary normalizes information from multiple sources, and as a consequence, information in this document may materially change the coding, format and clinical context of patient data. In addition, data may be omitted in some cases. CLINICAL DECISIONS SHOULD BE BASED ON THE PRIMARY CLINICAL RECORDS. [employer] provides no warranty or guarantee of the accuracy or completeness of information in this document.
--- NOTE | 2024-09-14 23:29 | ED_ITS ---
HPI HPI - General Adult General Chief complaint: Headache Stated complaint: neck pain Time Seen by Provider: 09/14/24 23:21 Source: patient Mode of arrival: walk-in Limitations: no limitations History of Present Illness HPI narrative: complains of neck pain and headache. States she fell onto her neck about one month ago. Has had some pain of her neck since the fall. also mild headache. patient states she recently found out she is . [id number] feels her neck pain and headache have increased for 2 weeks. Demonstrates turning to the right or extending her neck increases her pain. No radicular symptoms of her upper extremities. Headache without nausea , dizziness or photophobia Related Data Allergies Allergy/AdvReac Type Severity Reaction Status Date / Time No Known Drug Allergies Allergy Verified 09/14/24 23:21 Opioid HPI Opioid Management Most Recent Opioid Data: 2 Last Pain Scale 7 09/14/24 23:22 09/14/24 Review of Systems 2 ROS0 Status of ROS 10 or more systems reviewed and unremark able except as noted in history and below Exam Constitutional Vital Signs, click to edit/add: Last Vital Signs Temp 98.2 F 09/14/24 23:18 Pulse 88 09/14/24 23:18 Resp 18 09/14/24 23:18 BP 134/92 H 09/14/24 23:18 Pulse Ox 100 09/14/24 23:18 O2 Del Method Room Air 09/14/24 23:18 Common normals: no apparent distress, average body habitus, oriented x3, no limitations, healthy appearing, alert and well nourished [facility] Common normals: normocephalic and head/scalp atraumatic Head images: 2 1. tender and reproduces symptoms 2. tender and reproduces symptoms Eye Common normals: PERRL, EOMs intact bilaterally and conjunctivae normal (no photophobia) Neck & C-Spine Common normals: full ROM Respiratory Common normals: normal respiratory effort, no retractions and no use of accessory muscles Cardio Common normals: regular rate, regular rhythm, S1 normal heart sound and S2 normal heart sound GI Common normals: Normal to inspection, nondistended, normoactive bowel sounds present, soft to palpation and non-tender Extremity Common normals: normal to inspection Neuro Common normals: oriented x3, CN's II-XII intact bilaterally and no focal motor deficits Psych Appearance: grossly normal Course Vital Signs Vital signs: Vital Signs Temperature 98.2 F 09/14/24 23:18 Pulse Rate 88 09/14/24 23:18 Respiratory Rate 18 09/14/24 23:18 Blood Pressure 134/92 H 09/14/24 23:18 Pulse Oximetry 100 09/14/24 23:18 Oxygen Delivery Method Room Air 09/14/24 23:18 Temperature 98.2 F 09/14/24 23:18 Pulse Rate 88 09/14/24 23:18 Respiratory Rate 18 09/14/24 23:18 Blood Pressure 134/92 H 09/14/24 23:18 Pulse Oximetry 100 09/14/24 23:18 Oxygen Delivery Method Room Air 09/14/24 23:18 Medical Decision Making Medical Records Medical records narrative: patient presents clinically with muscular strain pain of her cervical spine radiating into her posterior scalp. Pain reproducible with turning of her head or extension of her neck . she did fall over a month ago and injured her neck. xrays of C-spine. neg. Patient is now . Shield used for xrays. Discharged home with a prescription for flexeril to use prn Imaging Data Chest x-ray: Radiologist's impression: ITS Impressions Cervical Spine X-Ray 09/14/24 23:33 IMPRESSION: Straightening of the normal lordotic curvature in the cervical spine likely due to muscle spasming. Otherwise unremarkable plain film examination of the cervical spine. Electronically authenticated by: JUAN JOSE GIVENS Date: 09/15/2024 00:30 Discharge Plan Discharge Chief Complaint: Headache Clinical Impression: Cervical muscle strain Patient Disposition: Home, Self-Care Print Language: Yakut Instructions: Cervical Strain (DC) Referrals: DIMITRI HORAN [Primary Care Provider] - 1 week
--- NOTE | 2024-09-14 23:33 | XR_ITS ---
The [address] [address] Patient Name: ELIZABETH ROMANO MRN: [id number] date: 1995 Sex: F Assigned Patient Location: ER Current [facility] Accession/Order Number: [id number] Exam Date: 09/14/2024 23:40 Report Date: 09/15/2024 00:30 At the request of: BERENICE RICO Procedure: XR cervical spine 2-3V EXAM TYPE: XR cervical spine 2-3V INDICATION: fall COMPARISON: None. TECHNIQUE: 3 views of the cervical spine. FINDINGS: Cervical vertebral bodies demonstrate normal alignment. There is straightening of the normal lordotic curvature of the cervical spine secondary to muscle spasming. Disc spaces are maintained. Prevertebral soft tissues are within normal limits. Lateral masses of C1-C2 are symmetric. XR/XR cervical spine 2-3V IMPRESSION: Straightening of the normal lordotic curvature in the cervical spine likely due to muscle spasming. Otherwise unremarkable plain film examination of the cervical spine. Electronically authenticated by: JUAN JOSE GIVENS Date: 09/15/2024 00:30
[2024-09-14] MEDS: CYCLOBENZAPRINE HCL 10 MG TABLET PO (23:49)
== END 2024-09-15 00:54 | disposition home or self-care (01) ==
PROVIDERS: Emergency Provider Internal Medicine; PCP Nurse Practitioner
DX: S16.1XXA Strain of muscle, fascia and tendon at neck level, initial encounter (principal); W19.XXXA Unspecified fall, initial encounter
CPT/HCPCS: 72040; 99283